=== PATIENT | female | born 1990 | race American Indian/Alaskan Native ===

== ENCOUNTER 2021-12-23 18:09 | Inpatient (IN) | payer MEDICAID ==
[2021-12-23] MEDS ORDERED: TERBUTALINE 1 MG/1 ML INJ SUB-Q PRN (20:36)
[2021-12-23] MEDS ORDERED: MINERAL OIL 30 ML ORAL LIQD PO PRN (20:36)
[2021-12-23] MEDS ORDERED: BUTORPHANOL 2 MG/1 ML INJ IV PRN (20:36)
[2021-12-23] MEDS ORDERED: ePHEDrine SULFATE 50 MG/1 ML INJ IV PRN (20:36)
[2021-12-23] MEDS ORDERED: ACETAMINOPHEN 325 MG TAB PO PRN (20:36)
[2021-12-23 22:02] LABS: Hematocrit 31.8 % (30.3-42.9); Mean Corpuscular HGB Conc 31 % (30-34); Platelet Count 190 K/mm3 (140-440); Red Blood Count 5.21 M/mm3 (3.65-5.03)
[2021-12-23 22:14] LABS: Mean Corpuscular Volume 61 fl (79-97); Red Cell Distribution Width 20.7 % (13.2-15.2)
[2021-12-23] MEDS: LACTATED RINGERS 1,000 ML IV SCH (22:30)
[2021-12-24] MEDS ORDERED: DINOPROSTONE 10 MG VAG SUPP VG ONE (00:15)
--- NOTE | 2021-12-24 08:32 | History and Physical Report ---
History of Present Illness Date of examination: 12/24/21 Date of admission: 12/23/21 20:36 Chief complaint: Sent from [facility] for induction History of present illness: This patient is a 30-year-old female 7 para 5-0-1-5 SHY January 13, 2022 at 37 weeks and 1 day who presented from maternal- medicine visit yesterday with instruction for induction secondary to poorly controlled gestational diabetes. Patient presents with glucose log with multiple values above 200. She reports good movement, and denies vaginal bleeding, leakage of fluid or contractions. She has had care at [place] since 32 weeks complicated by gestational diabetes, morbid obesity, iron deficiency anemia and genital herpes without lesion or prodrome. She is GBS negative. Overnight, the patient received Cervidil for cervical ripening. She reports brian t she ate nothing yesterday. 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[employer] TESTING History: herpes, trichomonas (Remote from this ) Family/Genetic History: none Social history: no significant social history - Obstetrical History Expected Date of Delivery: 01/13/22 Actual Gestation: 37 Week(s) 1 Day(s) : 7 Para: 5 Hx # Term Pregnancies: 5 Number of Pregnancies: 0 Spontaneous Abortions: 1 Induced : 0 Number of Living Children: 5 Medications and Allergies Allergies Allergy/AdvReac Type Severity Reaction Status Date / Time No Known Allergies Allergy Verified 04/16/20 21:59 Home Medications Medication Instructions Recorded Confirmed Last Taken Type Ferrous Sulfate [Feosol 325 MG tab] 325 mg PO TID 30 Days tablet 04/22/20 Unknown Rx Ibuprofen [Motrin] 800 mg PO Q8HR PRN 14 Days tablet 04/22/20 Unknown Rx Active Meds: Active Medications Acetaminophen (Acetaminophen 325 Mg Tab) 650 mg PO Q4H PRN PRN Reason: Pain, Mild (1-3) Butorphanol Tartrate (Butorphanol 2 Mg/1 Ml Inj) 1 mg IV Q2H PRN PRN Reason: Pain, Moderate(4-6) LABOR PAIN Ephedrine Sulfate (Ephedrine Sulfate 50 Mg/1 Ml Inj) 10 mg IV Q2M PRN PRN Reason: Hypotension Lactated Ringer's (Lactated Ringers) 1,000 mls @ 125 mls/hr IV DIRECT FRANCIA Last Admin: 12/23/21 22:30 Dose: 125 mls/hr Mineral Oil (Mineral Oil 30 Ml Oral Liqd) 30 ml PO QHS PRN PRN Reason: Constipation Terbutaline Sulfate (Terbutaline 1 Mg/1 Ml Inj) 0.25 mg SUB-Q ONCE PRN PRN Reason: Hyperstimulation/Hypertonicity Review of Systems All systems: negative - Vital Signs Vital signs: Vital Signs Pulse Pulse Ox 89 97 12/23/21 19:33 12/23/21 19:33 Temp Pulse Resp BP Pulse Ox 98.2 F 81 16 107/55 99 12/24/21 04:00 12/24/21 08:28 12/24/21 04:00 12/24/21 08:02 12/24/21 08:28 - Physical Exam Breasts: Positive: deferred Abdomen: Positive: soft (obese, gravid ) Uterus: Positive: enlarged (gravid ) Extremities: Positive: normal - Obstetrical FHR: auscultation normal Uterine Contraction Monitor Mode: External Cervical Dilatation: 3 Cervical Effacement Percentage: 50 station: -3 Uterine Contraction Pattern: Irregular Uterine Tone Measurement Phase: Resting Uterine Contraction Intensity: Mild Results Result Diagrams: 12/23/21 20:45 Abnormal lab results 12/23/21 12/24/21 Range/Units 20:45 07:23 WBC 12.1 H (4.5-11.0) K/mm3 RBC 5.21 H (3.65-5.03) M/mm3 Hgb 10.0 L (10.1-14.3) gm/dl MCV 61 L (79-97) fl MCH 19 L (28-32) pg RDW 20.7 H (13.2-15.2) % POC Glucose 118 H (70-105) mg/dL All other labs normal. Assessment and Plan A: IUP at 37w1d Gestational diabetes, poorly controlled Morbid obesity Anemia Limited care Genital herpes without lesion or prodrome GBS negative P:Admit to labor and delivery Clear liquid diet Accu-Chek every 4 hours in latent labor every hour in active labor Valtrex for herpes suppression Closely monitor maternal and status
[2021-12-24] MEDS ORDERED: INSULIN REGULAR, HUMAN 100 UNITS/1 ML SUB-Q PRN (09:00)
[2021-12-24] MEDS ORDERED: DEXTROSE 50% IN WATER (25GM) 50 ML SYRINGE IV PRN (09:00)
[2021-12-24] MEDS ORDERED: OXYTOCIN DRIP 30,000 MILLIUNITS/500 ML BAG IV ONE (12:51)
[2021-12-24] MEDS: OXYTOCIN DRIP 30 UNITS/500 ML BAG IV SCH ×3 (14:08→16:07)
[2021-12-24] MEDS ORDERED: valACYclovir 500 MG TAB PO SCH (15:00)
--- NOTE | 2021-12-25 07:46 | Progress Note ---
Assessment and Plan - Patient Problems (1) Gestational diabetes Current Visit: Yes Status: Acute Plan to address problem: Continue current management plan Subjective - Subjective Date of service: 12/25/21 Interval history: The patient is currently undergoing induction for gestational diabetes. She is receiving Pitocin augmentation. Currently without any significant complaints. Patient reports: no new complaints Objective - Vital Signs Vital Signs: Vital Signs - 12hr 12/24/21 12/24/21 12/24/21 20:02 20:07 20:12 Temperature Pulse Rate 77 81 81 Blood Pressure O2 Sat by Pulse 98 98 98 Oximetry O2 Sat by Pulse Oximetry [ Throughout] 12/24/21 12/24/21 12/24/21 20:17 20:22 20:27 Temperature Pulse Rate 81 82 85 Blood Pressure O2 Sat by Pulse 98 97 98 Oximetry O2 Sat by Pulse Oximetry [ Throughout] 12/24/21 12/24/21 12/24/21 20:32 20:37 20:42 Temperature Pulse Rate 94 H 83 83 Blood Pressure O2 Sat by Pulse 98 99 98 Oximetry O2 Sat by Pulse Oximetry [ Throughout] 12/24/21 12/24/21 12/24/21 20:46 20:47 20:52 Temperature 98.6 F Pulse Rate 82 83 Blood Pressure O2 Sat by Pulse 97 97 Oximetry O2 Sat by Pulse Oximetry [ Throughout] 12/24/21 12/24/21 12/24/21 20:57 21:02 21:07 Temperature Pulse Rate 83 80 84 Blood Pressure O2 Sat by Pulse 98 99 98 Oximetry O2 Sat by Pulse Oximetry [ Throughout] 12/24/21 12/24/21 12/24/21 21:12 21:17 21:22 Temperature Pulse Rate 85 80 81 Blood Pressure O2 Sat by Pulse 98 98 99 Oximetry O2 Sat by Pulse 95 Oximetry [ Throughout] 12/24/21 12/24/21 12/24/21 21:27 21:32 21:37 Temperature Pulse Rate 84 81 79 Blood Pressure O2 Sat by Pulse 97 97 98 Oximetry O2 Sat by Pulse Oximetry [ Throughout] 12/24/21 12/24/21 12/24/21 21:42 22:29 22:34 Temperature Pulse Rate 86 89 80 Blood Pressure O2 Sat by Pulse 98 98 98 Oximetry O2 Sat by Pulse Oximetry [ Throughout] 12/24/21 12/24/21 12/24/21 22:39 22:44 22:49 Temperature Pulse Rate 84 79 79 Blood Pressure O2 Sat by Pulse 98 98 98 Oximetry O2 Sat by Pulse Oximetry [ Throughout] 12/24/21 12/24/21 12/24/21 22:54 22:59 23:04 Temperature Pulse Rate 80 81 79 Blood Pressure O2 Sat by Pulse 98 98 98 Oximetry O2 Sat by Pulse Oximetry [ Throughout] 12/24/21 12/24/21 12/24/21 23:09 23:14 23:19 Temperature Pulse Rate 78 79 78 Blood Pressure O2 Sat by Pulse 98 98 98 Oximetry O2 Sat by Pulse Oximetry [ Throughout] 12/24/21 12/24/21 12/24/21 23:24 23:29 23:34 Temperature Pulse Rate 77 79 81 Blood Pressure O2 Sat by Pulse 98 98 97 Oximetry O2 Sat by Pulse Oximetry [ Throughout] 12/24/21 12/24/21 12/24/21 23:39 23:44 23:49 Temperature Pulse Rate 78 75 77 Blood Pressure O2 Sat by Pulse 97 98 97 Oximetry O2 Sat by Pulse Oximetry [ Throughout] 12/24/21 12/24/21 12/25/21 23:54 23:59 00:04 Temperature Pulse Rate 74 71 80 Blood Pressure O2 Sat by Pulse 96 96 96 Oximetry O2 Sat by Pulse Oximetry [ Throughout] 12/25/21 12/25/21 12/25/21 00:09 00:11 00:14 Temperature Pulse Rate 79 84 81 Blood Pressure O2 Sat by Pulse 95 94 96 Oximetry O2 Sat by Pulse Oximetry [ Throughout] 12/25/21 12/25/21 12/25/21 00:16 00:19 00:21 Temperature Pulse Rate 80 82 80 Blood Pressure O2 Sat by Pulse 92 95 93 Oximetry O2 Sat by Pulse Oximetry [ Throughout] 12/25/21 12/25/21 12/25/21 00:24 00:29 00:34 Temperature Pulse Rate 83 75 85 Blood Pressure O2 Sat by Pulse 96 92 96 Oximetry O2 Sat by Pulse Oximetry [ Throughout] 12/25/21 12/25/21 12/25/21 00:39 00:44 00:49 Temperature Pulse Rate 83 78 76 Blood Pressure O2 Sat by Pulse 96 97 98 Oximetry O2 Sat by Pulse Oximetry [ Throughout] 12/25/21 12/25/21 12/25/21 00:54 00:59 01:04 Temperature Pulse Rate 75 81 76 Blood Pressure O2 Sat by Pulse 97 97 97 Oximetry O2 Sat by Pulse Oximetry [ Throughout] 12/25/21 12/25/21 12/25/21 01:09 01:14 01:19 Temperature Pulse Rate 78 77 79 Blood Pressure O2 Sat by Pulse 98 97 97 Oximetry O2 Sat by Pulse Oximetry [ Throughout] 12/25/21 12/25/21 12/25/21 01:24 02:30 02:35 Temperature Pulse Rate 86 93 H 76 Blood Pressure O2 Sat by Pulse 96 98 97 Oximetry O2 Sat by Pulse Oximetry [ Throughout] 12/25/21 12/25/21 12/25/21 02:40 02:45 02:50 Temperature Pulse Rate 79 74 72 Blood Pressure O2 Sat by Pulse 97 97 97 Oximetry O2 Sat by Pulse Oximetry [ Throughout] 12/25/21 12/25/21 12/25/21 02:55 03:00 03:05 Temperature Pulse Rate 75 75 77 Blood Pressure O2 Sat by Pulse 96 96 96 Oximetry O2 Sat by Pulse Oximetry [ Throughout] 12/25/21 12/25/21 12/25/21 03:10 03:15 03:16 Temperature Pulse Rate 76 84 79 Blood Pressure O2 Sat by Pulse 97 96 94 Oximetry O2 Sat by Pulse Oximetry [ Throughout] 12/25/21 12/25/21 12/25/21 03:20 03:22 03:25 Temperature Pulse Rate 75 81 80 Blood Pressure O2 Sat by Pulse 97 94 96 Oximetry O2 Sat by Pulse Oximetry [ Throughout] 12/25/21 12/25/21 12/25/21 03:28 03:30 03:33 Temperature Pulse Rate 75 82 76 Blood Pressure O2 Sat by Pulse 92 98 94 Oximetry O2 Sat by Pulse Oximetry [ Throughout] 12/25/21 12/25/21 12/25/21 03:35 03:40 03:42 Temperature Pulse Rate 75 82 82 Blood Pressure O2 Sat by Pulse 93 96 94 Oximetry O2 Sat by Pulse Oximetry [ Throughout] 12/25/21 12/25/21 12/25/21 03:45 03:50 03:53 Temperature Pulse Rate 76 80 75 Blood Pressure O2 Sat by Pulse 95 96 93 Oximetry O2 Sat by Pulse Oximetry [ Throughout] 12/25/21 12/25/21 12/25/21 03:55 03:58 04:00 Temperature Pulse Rate 80 74 77 Blood Pressure O2 Sat by Pulse 98 94 98 Oximetry O2 Sat by Pulse Oximetry [ Throughout] 12/25/21 12/25/21 12/25/21 04:05 04:10 04:15 Temperature Pulse Rate 78 78 76 Blood Pressure O2 Sat by Pulse 97 97 97 Oximetry O2 Sat by Pulse Oximetry [ Throughout] 12/25/21 12/25/21 12/25/21 04:20 04:25 04:30 Temperature Pulse Rate 76 77 77 Blood Pressure O2 Sat by Pulse 98 98 97 Oximetry O2 Sat by Pulse Oximetry [ Throughout] 12/25/21 12/25/21 12/25/21 04:35 04:40 04:45 Temperature Pulse Rate 78 76 74 Blood Pressure O2 Sat by Pulse 97 98 98 Oximetry O2 Sat by Pulse Oximetry [ Throughout] 12/25/21 12/25/21 12/25/21 04:50 04:53 04:55 Temperature Pulse Rate 76 96 H 72 Blood Pressure O2 Sat by Pulse 98 94 98 Oximetry O2 Sat by Pulse Oximetry [ Throughout] 12/25/21 12/25/21 12/25/21 05:00 05:01 05:05 Temperature Pulse Rate 76 72 76 Blood Pressure O2 Sat by Pulse 95 94 94 Oximetry O2 Sat by Pulse Oximetry [ Throughout] 12/25/21 12/25/21 12/25/21 05:06 05:09 05:10 Temperature Pulse Rate 88 78 78 Blood Pressure 104/55 O2 Sat by Pulse 94 97 Oximetry O2 Sat by Pulse Oximetry [ Throughout] 12/25/21 12/25/21 12/25/21 05:15 05:19 05:20 Temperature 98.1 F Pulse Rate 78 77 Blood Pressure O2 Sat by Pulse 97 96 Oximetry O2 Sat by Pulse Oximetry [ Throughout] 12/25/21 12/25/21 12/25/21 05:25 05:30 05:35 Temperature Pulse Rate 75 77 75 Blood Pressure O2 Sat by Pulse 97 97 97 Oximetry O2 Sat by Pulse Oximetry [ Throughout] 12/25/21 12/25/21 12/25/21 05:39 05:40 05:45 Temperature Pulse Rate 81 83 75 Blood Pressure O2 Sat by Pulse 94 96 99 Oximetry O2 Sat by Pulse Oximetry [ Throughout] 12/25/21 12/25/21 12/25/21 05:50 05:55 06:00 Temperature Pulse Rate 83 77 81 Blood Pressure O2 Sat by Pulse 97 98 99 Oximetry O2 Sat by Pulse Oximetry [ Throughout] 12/25/21 12/25/21 12/25/21 06:05 06:10 06:15 Temperature Pulse Rate 79 75 75 Blood Pressure O2 Sat by Pulse 99 99 98 Oximetry O2 Sat by Pulse Oximetry [ Throughout] 12/25/21 12/25/21 12/25/21 06:20 06:25 06:30 Temperature Pulse Rate 77 78 78 Blood Pressure O2 Sat by Pulse 98 98 98 Oximetry O2 Sat by Pulse Oximetry [ Throughout] 12/25/21 12/25/21 12/25/21 06:35 06:40 06:45 Temperature Pulse Rate 74 79 78 Blood Pressure O2 Sat by Pulse 98 98 99 Oximetry O2 Sat by Pulse Oximetry [ Throughout] 12/25/21 12/25/21 12/25/21 06:50 06:55 07:00 Temperature Pulse Rate 77 80 86 Blood Pressure O2 Sat by Pulse 98 99 98 Oximetry O2 Sat by Pulse Oximetry [ Throughout] 12/25/21 12/25/21 12/25/21 07:05 07:10 07:15 Temperature Pulse Rate 86 83 81 Blood Pressure O2 Sat by Pulse 98 98 99 Oximetry O2 Sat by Pulse Oximetry [ Throughout] 12/25/21 12/25/21 12/25/21 07:20 07:25 07:30 Temperature Pulse Rate 80 77 84 Blood Pressure 97/49 O2 Sat by Pulse 98 98 97 Oximetry O2 Sat by Pulse Oximetry [ Throughout] 12/25/21 12/25/21 07:35 07:40 Temperature Pulse Rate 81 86 Blood Pressure O2 Sat by Pulse 98 98 Oximetry O2 Sat by Pulse Oximetry [ Throughout] - Labs Labs: Abnormal Labs 12/23/21 12/24/21 12/24/21 20:45 07:23 17:11 WBC 12.1 H RBC 5.21 H Hgb 10.0 L MCV 61 L MCH 19 L RDW 20.7 H POC Glucose 118 H 68 L Laboratory Results - last 24 hr 12/24/21 12/24/21 12/24/21 12:15 12:43 17:11 POC Glucose 87 68 L SARS-CoV-2 (PCR) Negative 12/24/21 12/25/21 12/25/21 21:05 01:25 05:07 POC Glucose 90 93 84 SARS-CoV-2 (PCR)
--- NOTE | 2021-12-25 17:07 | Ultrasound Report ---
ULTRASOUND OBSTETRIC LIMITED INDICATION / CLINICAL INFORMATION: presentation. Clinical Gestational Age (GA) in weeks, days: 37, 2 TECHNIQUE: Transabdominal. COMPARISON: None available. FINDINGS: HEART RATE (beats per minute): 123 PRESENTATION: Cephalic. ADDITIONAL FINDINGS: None. IMPRESSION: 1. No significant abnormality. Signer Name: Travis Suarez DO Signed: 12/25/2021 5:03 PM Workstation Name: [id number]
--- NOTE | 2021-12-26 09:12 | Event Note ---
Date: 12/26/21 Patient undergoing induction for gestational diabetes. Amniotomy was performed with clear fluid. IUPC was placed. Patient is currently on Pitocin 20 mIU. Cervix 3 cm. will continue with augmentation
[2021-12-26] MEDS: LACTATED RINGERS 1,000 ML IV SCH (10:31)
[2021-12-26] MEDS: OXYTOCIN DRIP 30 UNITS/500 ML BAG IV SCH (10:32)
[2021-12-26] MEDS ORDERED: BUPIVACAINE/PF (0.25%) 2.5 MG/ML 10 ML VIAL INFILTRATI ONE (11:08)
[2021-12-26] MEDS ORDERED: NALOXONE 0.4 MG/1 ML INJ IV PRN (11:12)
[2021-12-26] MEDS ORDERED: fentaNYL-BUPIV 2 MCG/ML-0.125% 200 MCG/100 ML BAG EPIDURAL SCH (11:12)
[2021-12-26] MEDS ORDERED: ePHEDrine SULFATE 50 MG/1 ML INJ IV PRN (11:12)
--- NOTE | 2021-12-26 11:13 | Anesthesia Consultation ---
Anesthesia Consult and Med Hx Date of service: 12/26/21 - Airway Anesthetic Teeth Evaluation: Good ROM Head & Neck: Adequate Mallampati Class: Class II Intubation Access Assessment: Probably Good - Pulmonary Exam CTA: Yes - Cardiac Exam Cardiac Exam: RRR - Pre-Operative Health Status ASA Pre-Surgery Classification: ASA2 Proposed Anesthetic Plan: Epidural - Pulmonary Hx Smoking: No Hx Asthma: No Hx Respiratory Symptoms: No SOB: No COPD: No Home Oxygen Therapy: No Hx Pneumonia: No Hx Sleep Apnea: No - Cardiovascular System Hx Hypertension: No Hx Coronary Artery Disease: No Hx Heart Attack/AMI: No Hx Angina: No Hx Percutaneous Transluminal Coronary Angioplasty (PTCA): No Hx Cardia Arrhythmia: No Hx Pacemaker: No Hx Internal Defibrillator: No Hx Valvular Heart Disease: No Hx Heart Murmur: No Hx Peripheral Vascular Disease: No - Central Nervous System Hx Neuromuscular Disorder: No Hx Seizures: No CVA: No Hx Back Pain: No Hx Psychiatric Problems: No - Gastrointestinal Hx Ulcer: No Hx Gastroesophageal Reflux Disease: No - Endocrine Hx Renal Disease: No Hx End Stage Renal Disease: No Hx Cirrhosis: No Hx Liver Disease: No Hx Insulin Dependent Diabetes: No Hx Non-Insulin Dependent Diabetes: No Hx Thyroid Disease: No Hx Hypothyroidism: No Hx Hyperthyroidism: No - Hematic Hx Anemia: No Hx Sickle Cell Disease: No - Other Systems Hx Alcohol Use: No Hx Substance Use: No Hx Cancer: No Hx Obesity: Yes
--- NOTE | 2021-12-26 11:14 | Progress Note ---
Labor Epidural - Labor Epidural Start Time: 09:51 Stop Time: :56 Performed by:: IRAIDA LOMAS Procedure: Epidural Requested for Labor Pain. H&P and PT Chart reviewed and consent obtained. Time out performed and the procedure was explained, all questions answered. Patient was placed in a sitting position with monitors applied. The PTs back was prepped and draped in usual sterile fashion. The Skin was localized with 3 mL of 1% lidocaine at L3-L4. A 17-gauge Touhy epidural needle was advanced to REGINE with saline at 7 cm and no blood/CSF was noted via epidural needle. Epidural catheter was advanced to 12 cm. There was negative aspiration for blood and CSF in the catheter and negative response to a test dose of 3 ml 1.5% lidocaine w/ Epi and a sterile dressing was applied Patient tolerated the procedure well and there were no immediate complications noted.
--- NOTE | 2021-12-26 11:14 | Anesthesia Day of Surgery ---
Anesthesia Day of Surgery - Day of Surgery Patient Examined: Yes Patient H&P Reviewed: Yes Patient is NPO: Yes Beta Blockers: No Cardiac Clearance: No Pulmonary Clearance: No Kan's Test: N/A
[2021-12-26] MEDS ORDERED: METHYLERGONOVINE MALEATE 0.2 MG/ML VIAL IM ONE ×2 (11:56→11:58)
[2021-12-26] MEDS ORDERED: miSOPROStol 200 MCG TAB PR ONE (11:56)
[2021-12-26] MEDS ORDERED: miSOPROStol 200 MCG TAB ONE (11:56)
--- NOTE | 2021-12-26 12:25 | Procedure Note ---
OB Delivery Note - Delivery Date of Delivery: 12/26/21 Surgeon: ROSEY CAREY Estimated blood loss: 300cc - Vaginal Delivery presentation: vertex Delivery position: OA Delivery monitor: external FHT, external uterine, internal uterine Route of delivery: Delivery placenta: spontaneous Delivery cord: nuchal cord, 3 umbilical vessels Delivery laceration: none Anesthesia: epidural Delivery comments: The patient had a spontaneous delivery of a liveborn male with Apgars of 8 and 9 weight 7 pounds 8 ounces. After delivery of the head and nuchal cord x1 was manually reduced. The shoulders delivered without difficulty. The cord was clamped and cut and the infant was placed on the warmer for further evaluation. The placenta delivered spontaneously intact with a three-vessel cord. No lacerations were noted. The patient experience uterine atony after delivery of the placenta. Cytotec was given per rectum. EBL of 400 mL - Infant A at 1 minute: 8 at 5 minutes: 9 Gender: Male (Weight 7 pounds 8 ounces)
[2021-12-26] MEDS ORDERED: diphenhydrAMINE 25 MG CAP PO PRN (12:26)
[2021-12-26] MEDS ORDERED: PROMETHAZINE 25 MG RECT SUPP PR PRN (12:26)
[2021-12-26] MEDS ORDERED: oxyCODONE /ACETAMINOPHEN 5-325MG TAB PO PRN (12:26)
[2021-12-26] MEDS ORDERED: PROMETHAZINE 25 MG TAB PO PRN (12:26)
[2021-12-26] MEDS ORDERED: ONDANSETRON 4 MG/2 ML INJ IV PRN (12:26)
[2021-12-26] MEDS ORDERED: WITCH HAZEL/ GLYCERIN PAD TP PRN (12:26)
[2021-12-26] MEDS ORDERED: ACETAMINOPHEN 325 MG TAB PO PRN (12:26)
[2021-12-26] MEDS ORDERED: LANOLIN/ZINC/DIMETHICONE (LANSINOH) 7 GM TP PRN (12:26)
[2021-12-26] MEDS ORDERED: MAGNESIUM HYDROXIDE (MOM) ORAL LIQD UDC PO PRN (12:26)
[2021-12-26] MEDS: IBUPROFEN 800 MG TAB PO SCH ×2 (13:19→20:06)
[2021-12-27 05:04] LABS: Hematocrit 29.2 % (30.3-42.9); Hemoglobin 8.9 gm/dl (10.1-14.3)
[2021-12-27] MEDS: IBUPROFEN 800 MG TAB PO SCH (05:11)
[2021-12-27 09:00] VITALS: BP 133/77
--- NOTE | 2021-12-27 10:07 | Progress Note ---
Assessment and Plan - Patient Problems (1) Gestational diabetes Current Visit: Yes Status: Acute Plan to address problem: Patient doing well Discharge home Subjective - Subjective Date of service: 12/27/21 Interval history: The patient is currently without complaints. The is currently in the NICU. The patient has requested to go home today. Patient reports: appetite normal, voiding normally, pain well controlled [place]: in NICU Objective - Vital Signs Latest vital signs: Vital Signs Temp Pulse Resp BP Pulse Ox Pulse Ox 12/27/21 08:42 98 12/27/21 08:25 97.8 F 69 20 133/77 99 12/27/21 00:50 95 12/27/21 00:48 98.3 F 80 20 120/57 89 12/26/21 21:56 98.5 F 79 20 142/85 98 12/26/21 20:00 98 12/26/21 15:47 98.8 F 73 18 130/64 97 12/26/21 14:40 75 151/65 12/26/21 14:39 76 98 12/26/21 14:34 76 99 12/26/21 14:29 93 H 98 12/26/21 14:24 76 110/56 99 12/26/21 14:19 72 99 12/26/21 14:14 80 98 12/26/21 14:09 73 125/58 98 12/26/21 14:04 74 98 12/26/21 13:59 74 99 12/26/21 13:54 76 149/66 99 12/26/21 13:49 73 99 12/26/21 13:47 98 12/26/21 13:44 77 99 12/26/21 13:43 98.1 F 18 12/26/21 13:39 74 146/74 99 12/26/21 13:34 79 100 12/26/21 13:29 74 100 12/26/21 13:24 82 155/77 100 12/26/21 13:19 77 100 12/26/21 13:14 88 100 12/26/21 13:10 75 151/72 12/26/21 13:09 77 100 12/26/21 13:04 89 100 12/26/21 12:59 77 99 12/26/21 12:54 84 99 12/26/21 12:49 79 100 12/26/21 12:44 76 99 12/26/21 12:40 82 142/69 12/26/21 12:39 83 100 12/26/21 12:34 79 100 12/26/21 12:29 84 100 12/26/21 12:25 90 119/58 12/26/21 12:24 90 100 12/26/21 12:19 88 99 12/26/21 12:18 90 134/64 12/26/21 12:14 71 100 12/26/21 12:10 110 H 123/69 12/26/21 12:09 107 H 100 12/26/21 12:04 115 H 100 12/26/21 11:59 136 H 100 12/26/21 11:56 131 H 150/76 12/26/21 11:54 117 H 97 12/26/21 11:49 104 H 99 12/26/21 11:44 140 H 100 12/26/21 11:40 137 H 204/84 12/26/21 11:39 137 H 100 12/26/21 11:34 107 H 100 12/26/21 11:29 98 H 100 12/26/21 11:24 80 126/57 100 12/26/21 11:19 87 100 12/26/21 11:14 82 100 12/26/21 11:09 90 136/58 100 12/26/21 11:07 87 137/69 12/26/21 11:04 85 139/70 100 12/26/21 11:00 99 H 138/79 12/26/21 10:59 97 H 100 12/26/21 10:56 88 144/76 12/26/21 10:55 88 81 L 12/26/21 10:54 102 H 148/77 98 12/26/21 10:49 92 H 99 12/26/21 10:44 87 98 12/26/21 10:39 80 100 12/26/21 10:34 81 100 12/26/21 10:29 80 100 12/26/21 10:24 86 100 12/26/21 10:19 85 100 12/26/21 10:14 78 100 12/26/21 10:09 77 100 Intake and Output 12/26/21 12/27/21 12/27/21 22:59 06:59 14:59 Intake Total 200 600 Output Total 800 Balance -600 600 Intake: Oral 200 240 Intake, Free Water 360 Output: Urine 800 Void 800 Other: Total, Intake Amount 200 240 Total, Output Amount 800 # Voids Void 3 1 - Exam Uterus: Present: firm - Labs Labs: Abnormal lab results 12/27/21 Range/Units 04:40 Hgb 8.9 L (10.1-14.3) gm/dl Hct 29.2 L (30.3-42.9) %
--- NOTE | 2021-12-27 10:08 | Discharge Summary ---
Providers - Providers Date of Admission: 12/23/21 20:36 Date of discharge: 12/27/21 Attending physician: ROSEY CAREY Primary care physician: ROSEY CAREY Hospitalization Reason for admission: induction of labor Delivery: Discharge diagnosis: IUP at term delivered Hospital course: The patient was admitted for induction of labor secondary to gestational diabetes. She had a successful vaginal delivery. Her course was uneventful. Condition at discharge: Good Disposition: 01 HOME / SELF CARE / HOMELESS - Discharge Diagnoses (1) Gestational diabetes Status: Acute Plan - Discharge Medications Prescriptions: Ibuprofen [Motrin] 800 mg PO Q8HR PRN #30 tablet PRN Reason: Pain , Severe (7-10) HYDROcodone/APAP 5-325 [[place] 5/325] 1 each PO Q6HR PRN #15 tablet PRN Reason: Pain - Provider Discharge Summary Activity: no sex for 6 weeks, no heavy lifting 4 weeks, no strenuous exercise Diet: routine Instructions: routine Additional instructions: [] Smoking cessation referral if applicable(refer to patient education folder for contact #) [] Refer to [facility] Booklet Call your doctor immediately for: * Fever > 100.5 * Heavy vaginal bleeding ( >1 pad per hour) * Severe persistent headache * Shortness of breath * Reddened, hot, painful area to leg or breast * Schedule visit in 4 weeks - Follow up plan
--- NOTE | 2021-12-28 08:20 | Post Anesthesia Evaluation ---
- Post Anesthesia Evaluation Patient Participated: No Airway Patent: Yes Stable Respiratory Function: Yes Nausea/Vomiting: No Temp > 96.8F: Yes Pain Manageable: Yes Adequeate Hydration: Yes Anesthesia Complications: No Block Receding Appropriately: Yes Patient on Ventilator: No
== END 2021-12-27 11:10 | disposition home or self-care (01) | DRG 774 ==
LOC: TRG 18:09 → APU 18:13 → TRG 20:36 → LD 20:36 → OB 12-26 15:28
PROVIDERS: ADMIT Obstetrics & Gynecology; ATTEND Obstetrics & Gynecology
PROC: 10E0XZZ Delivery of Products of Conception, External Approach (ICD-10-PCS; principal; 2021-12-26)
PROC: 3E0R3BZ Introduction of Anesthetic Agent into Spinal Canal, Percutaneous Approach (ICD-10-PCS; 2021-12-26)
PROC: 00HU33Z Insertion of Infusion Device into Spinal Canal, Percutaneous Approach (ICD-10-PCS; 2021-12-26)
DX: O24.429 Gestational diabetes mellitus in childbirth, unspecified control (principal); O98.32 Other infections with a predominantly sexual mode of transmission complicating childbirth; Z3A.37 37 weeks gestation of pregnancy; Z20.822 Contact with and (suspected) exposure to COVID-19; A60.00 Herpesviral infection of urogenital system, unspecified; O99.214 Obesity complicating childbirth; E66.01 Morbid (severe) obesity due to excess calories; O99.02 Anemia complicating childbirth; O69.81X0 Labor and delivery complicated by cord around neck, without compression, not applicable or unspecified; Z37.0 Single live birth
CPT/HCPCS: 36415; 59200; 76815; 82962; 85014; 85018; 85027; 86850; 86900; 86901; G0378; J3490; J0595; J2590; J7120; U0003

== ENCOUNTER 2022-01-27 08:04 | Day surgery (SDC) | payer MEDICAID ==
[~2022-01-27 08:04] MED LIST: ACETAMINOPHEN 500 MG TAB PO SCH; CELECOXIB 200 MG CAP PO NR; GABAPENTIN 300 MG CAP PO NR; LACTATED RINGERS 1,000 ML IV SCH; MIDAZOLAM 2 MG/2 ML INJ IV NR; SCOPOLAMINE TRANSDERMAL PATCH 72 HR TD NR
--- NOTE | 2022-01-27 08:31 | Short Stay Summary ---
Short Stay Documentation Date of service: 01/27/22 Narrative H&P: 31-year-old with undesired fertility. The patient is aware of other contraceptive options and has elected for permanent sterilization. - History Principal diagnosis: Unwanted fertility Past Medical History: No medical history, other (Ectopic ) Past Surgical History: Other (Laparoscopy and salpingectomy) Social history: single - Allergies and Medications Current Medications: Allergies No Known Allergies Allergy (Verified 01/20/22 21:31) Home Medications Medication Instructions Recorded Confirmed Last Taken Type No Known Home Medications [No 01/20/22 01/20/22 Unknown History Reported Home Medications] Active Medications Acetaminophen (Acetaminophen 500 Mg Tab) 1,000 mg PO PREOP FRANCIA Stop: 01/27/22 23:59 Celecoxib (Celecoxib 200 Mg Cap) 200 mg PO PREOP NR Stop: 01/27/22 23:59 Gabapentin (Gabapentin 300 Mg Cap) 300 mg PO PREOP NR Stop: 01/27/22 23:59 Lactated Ringer's (Lactated Ringers) 1,000 mls @ 100 mls/hr IV DIRECT FARNCIA Stop: 01/27/22 23:59 Midazolam HCl (Midazolam 2 Mg/2 Ml Inj) 2 mg IV PREOP NR Stop: 01/27/22 23:59 Scopolamine (Scopolamine Transdermal Patch 72 Hr) 1 each TD PREOP NR Stop: 01/27/22 23:59 - Physical exam General appearance: no acute distress Integumentary: no rash HEENT: Atraumatic Lungs: Clear to auscultation Breasts: deferred Heart: Regular rate Gastrointestinal: normal Female Genitourinary: deferred Rectal Exam: deferred - Brief post op/procedure progress note Date of procedure: 01/27/22 Pre-op diagnosis: Undesired fertility Post-op diagnosis: same Procedure: Laparoscopy Left salpingectomy Anesthesia: GETA Surgeon: ROSEY CAREY Estimated blood loss: minimal Pathology: list (Left fallopian tube) Specimen disposition: to lab Condition: stable - Hospital course Hospital course: The patient was admitted the day of surgery underwent a laparoscopic tubal ligation. Please see operative note for details of surgery. Postoperative course was uneventful. - Disposition Condition at discharge: Good Disposition: 01 HOME / SELF CARE / HOMELESS Short Stay Discharge Plan Activity: no restrictions (Pelvic rest for 1 week) Diet: regular Additional Instructions: Follow-up is not required Follow-up as needed Prescriptions: Ibuprofen [Motrin] 800 mg PO Q8HR PRN #30 tablet PRN Reason: Pain , Severe (7-10) HYDROcodone/APAP 5-325 [[place] 5/325] 1 each PO Q6HR PRN #15 tablet PRN Reason: Pain
--- NOTE | 2022-01-27 08:44 | Anesthesia Consultation ---
Anesthesia Consult and Med Hx Date of service: 01/27/22 - Airway Anesthetic Teeth Evaluation: Good ROM Head & Neck: Adequate Mental/Hyoid Distance: Adequate Mallampati Class: Class II Intubation Access Assessment: Probably Good - Pre-Operative Health Status ASA Pre-Surgery Classification: ASA2 Proposed Anesthetic Plan: General - Pulmonary Hx Smoking: No Hx Respiratory Symptoms: No - Cardiovascular System Hx Hypertension: No - Central Nervous System CVA: No - Gastrointestinal Hx Ulcer: No - Endocrine Hx Renal Disease: No Hx Liver Disease: No Hx Insulin Dependent Diabetes: No Hx Non-Insulin Dependent Diabetes: No Hx Thyroid Disease: No - Other Systems Hx Obesity: Yes (BMI 40) - Additional Comments Anesthesia Medical History Comments: No hx anesthetic complications.
[2022-01-27] MEDS ORDERED: oxyCODONE /ACETAMINOPHEN 5-325MG TAB PO PRN (08:45)
[2022-01-27] MEDS ORDERED: ONDANSETRON 4 MG/2 ML INJ IV PRN (08:45)
[2022-01-27] MEDS ORDERED: HYDROmorphone 0.5 MG/0.5 ML INJ IV PRN (08:45)
--- NOTE | 2022-01-27 08:45 | Anesthesia Day of Surgery ---
Anesthesia Day of Surgery - Day of Surgery Patient Examined: Yes Patient H&P Reviewed: Yes Patient is NPO: Yes
[2022-01-27] MEDS ORDERED: BUPIVACAINE/PF (0.5%) 5 MG/1 ML 10 ML VIAL INFILTRATI ONE ×2 (11:02→11:41)
[2022-01-27] MEDS ORDERED: ROCURONIUM 50 MG/5 ML INJ IV ONE (11:06)
[2022-01-27] MEDS ORDERED: LIDOCAINE MPF (2%) 20 MG/1 ML VIAL 5 ML ONE (11:06)
[2022-01-27] MEDS ORDERED: propofoL 200 MG/20 ML VIAL IV ONE ×2 (11:06→12:05)
[2022-01-27] MEDS ORDERED: fentaNYL 100 MCG/2 ML INJ ONE (11:06)
[2022-01-27] MEDS ORDERED: HYDROmorphone 1 MG/1 ML INJ ONE (11:33)
[2022-01-27] MEDS ORDERED: SODIUM CHLORIDE 0.9% IRR 1,500 ML BOTTLE IR ONE (11:41)
--- NOTE | 2022-01-27 12:07 | Operative Report ---
Operative Report Operative Report: Date of surgery: January 27, 2022 Preoperative diagnosis: Unwanted fertility Postoperative diagnosis: Same as above Procedure: Laparoscopy; left salpingectomy Surgeon: Narda Lyon M.D. Anesthesia: General endotracheal anesthesia Estimated blood loss: Minimal Pathology: Left fallopian tubes Findings: Normal uterus and ovaries bilaterally. The patient had a surgically absent right fallopian tube. Her left fallopian tube was normal in appearance. Indication: 31-year-old -0-1-6 with a history of an ectopic in the past. The patient has undesired fertility and has elected to undergo permanent sterilization. Procedure: The patient was taken to the operating room and given general endotracheal anesthesia without complication. The patient is prepped and draped in a normal sterile fashion. A bivalve speculum was placed in the patient's vagina and a single-tooth tenaculum was placed on the anterior lip of the cervix .A uterine acorn manipulator was placed, and the bivalve speculum was then removed. Attention was then turned to the patient's abdomen where a 5 mm infraumbilical skin incision was then made. A Veress needle was placed and peritoneal entry was verified water-filled syringe. Insufflation of the peritoneal cavity was performed with CO2 gas. A 5 mm trocar was placed and the laparoscope was then inserted. The patient was then placed in Trendelenburg. A 7 mm suprapubic skin incision was then made. Under direct visualization a 7 mm trocar was then placed. An additional 5 mm left lateral trocar was also placed. General survey of the patient's abdomen revealed evidence of a surgically absent right fallopian tube normal left fallopian tube. The left fallopian tube was then followed out to the fimbriated end. The LigaSure device was used in order to coagulate and transect the mesosalpinx. The fallopian tube was excised from the adnexa. The fallopian tube was removed through the 7 mm trocar. A complete survey of the right adnexa was performed to the verify that the right fallopian tube was surgically absent. There is increased vascularity going to the uterus and was adherent to the right pelvic sidewall. The trocars were then removed. The pneumoperitoneum was then released. The 5 mm trocar laparoscope was then removed. The skin incisions were then closed with 4-0 Monocryl. The incisions were injected with quarter percent Marcaine. Dressings were applied to the incision. The vaginal instruments were then removed atraumatically. Then successfully extubated and taken to the recovery room. All sponge laps and needle counts were correct x2.
[2022-01-27] MEDS ORDERED: ONDANSETRON 4 MG/2 ML INJ ONE ×2 (12:14→13:49)
[2022-01-27] MEDS ORDERED: GLYCOPYRROLATE 0.4 MG/2 ML INJ ONE (12:14)
[2022-01-27] MEDS ORDERED: KETOROLAC 30 MG/1 ML INJ ONE (12:14)
[2022-01-27] MEDS ORDERED: dexAMETHasone 20 MG/5 ML VIAL ONE (12:14)
[2022-01-27] MEDS ORDERED: NEOSTIGMINE 10MG/10 ML INJ MDV ONE (12:14)
[2022-01-27] MEDS ORDERED: SODIUM CHLORIDE 0.9% 1000 ML 1,000 ML ONE (12:15)
[2022-01-27 13:32] VITALS: BP 128/74
[2022-01-27] MEDS ORDERED: ONDANSETRON 4 MG/2 ML INJ IV ONE (14:00)
--- NOTE | 2022-01-27 14:34 | Post Anesthesia Evaluation ---
- Post Anesthesia Evaluation Patient Participated: Yes Airway Patent: Yes Stable Respiratory Function: Yes Nausea/Vomiting: No Temp > 96.8F: Yes Pain Manageable: Yes Adequeate Hydration: Yes Anesthesia Complications: No
== END 2022-01-27 14:00 | disposition home or self-care (01) ==
LOC: OR 08:04
PROVIDERS: ATTEND Obstetrics & Gynecology
DX: Z30.2 Encounter for sterilization (principal); E66.9 Obesity, unspecified; Z79.899 Other long term (current) drug therapy; Z98.890 Other specified postprocedural states; Z68.41 Body mass index [BMI] 40.0-44.9, adult
CPT/HCPCS: 58670; 81025; 88302; J1100; J1170; J1815; J1885; J2405; J2704; J2710; J3010; J3490; J7030; J7120